=== PATIENT | male | born 1990 | race Two or more races ===

== ENCOUNTER 2020-07-11 13:03 | Emergency (ER) | payer OTHER ==
[~2020-07-11] VITALS: Ht 177.8 cm; Wt 97.0 kg
[2020-07-11] MEDS ORDERED: HYDROCODONE/ACETAMINOPHEN 5/325MG TABLET PO ONE (14:00)
[2020-07-11] MEDS ORDERED: BACITRACIN ZINC OINT UDPKT TOP ONE (14:15)
[2020-07-11] MEDS ORDERED: TETANUS, DIPHTHERIA, PERTUSSIS VAC/PF 0.5ML (>7YR OLD) IM ONE (14:15)
[2020-07-11 16:00] VITALS: BP 144/66
== END 2020-07-11 16:30 | disposition home or self-care (01) ==
LOC: ER 13:03
DX: S02.2XXA Fracture of nasal bones, initial encounter for closed fracture (principal); S06.9X0A Unspecified intracranial injury without loss of consciousness, initial encounter; S01.81XA Laceration without foreign body of other part of head, initial encounter; S50.11XA Contusion of right forearm, initial encounter; F17.200 Nicotine dependence, unspecified, uncomplicated; F15.10 Other stimulant abuse, uncomplicated; Y04.0XXA Assault by unarmed brawl or fight, initial encounter; Y93.89 Activity, other specified; Y92.89 Other specified places as the place of occurrence of the external cause; Y99.8 Other external cause status
CPT/HCPCS: 12013; 70486; 71045; 73090; 90471; 90715; 99285

== ENCOUNTER 2025-09-16 21:59 | Emergency (ER) | payer OTHER ==
[~2025-09-16] VITALS: Ht 177.8 cm; Wt 113.0 kg
[2025-09-16 22:14] VITALS: BP 150/106; PULSE 81; RESP 16; TEMP 36.6; O2SAT 96
[2025-09-16] MEDS: TETANUS, DIPHTHERIA, PERTUSSIS VAC/PF 0.5ML (>10YR OLD) IM ONE (22:33)
[2025-09-16] MEDS: LIDOCAINE HCL 1% 20ML VIAL INFIL ONE (22:51)
== END 2025-09-16 23:48 | disposition home or self-care (01) ==
LOC: ER 21:59
DX: S61.212A Laceration without foreign body of right middle finger without damage to nail, initial encounter (principal); X58.XXXA Exposure to other specified factors, initial encounter; Y93.89 Activity, other specified; Y92.89 Other specified places as the place of occurrence of the external cause; Y99.8 Other external cause status
CPT/HCPCS: 99283; 90715; 12001; 90471; J2003